=== PATIENT | female | born 1935 | race Caucasian/White ===

== ENCOUNTER 2016-06-20 17:04 | Inpatient (IN) | payer OTHER ==
[~2016-06-20] VITALS: Ht 160 cm; Wt 58.0 kg
[~2016-06-20 17:04] MED LIST: ADVAIR 250/501 DISK IH; ASCORBIC ACID500 M3 PO; BENADRYL50 MG PO; COREG6.25 MG PO; Coreg PO; FLOXIN OTIC SOLN5 ML LEFT EAR; GLIPIZIDE ER; GLUCOPHAGE1000 MG PO; GLUCOSAMINE &1 EAC1 PO; GLUCOTROL XL10 MG PO; Glucotrol XL PO; Habitrol,Nicoderm CQ TD; LISINIPRIL; LISINOPRIL PO; LISINOPRIL40 MG PO; Lasix PO; Levaquin PO; METFORMIN HCL1000 MG PO; PERCOCET 5/31 TABLET PO; PRAVACHOL40 MG PO; PREDNISONE50 MG PO; PREVACID30 MG PO; PRINIVIL10 MG PO; SPIRIVA1 INHALATI IH; SYMBICORT60 INHALAT IH; VITAMIN B12-FO1 EACH PO; ZESTRIL,PRINIVI10 MG PO; Zestril,Prinivil PO; Zithromax PO; predniSONE PO
[2016-06-20 17:39] LABS: HEMATOCRIT 31.4 % (36.0-46.0); MCH 29.6 PG (29.0-34.0); MCHC 33.4 G/DL (30.0-36.0); MCV 88.5 FL (83-99); MEAN PLAT.VOLUME 11.1 uM^3 (9.5-12.4); PLATELET COUNT 195 K/uL (156-360); RBC DIS.WIDTH-CV 14.4 % (11.8-14.6); RBC DIS.WIDTH-SD 45.7 % (39-53); RED BLOOD COUNT 3.55 M/uL (3.80-5.20); WHITE BLOOD COUNT 9.4 K/uL (4.1-10.2)
[2016-06-20 17:54] LABS: CHLORIDE 92 mEq/L (99-109); SODIUM 133 mEq/L (136-147)
[2016-06-20 17:56] LABS: GLUCOSE 207 mg/dL (70-99)
[2016-06-20 17:58] LABS: ANION GAP 15 MEQ/L (2-14); TOTAL BILIRUBIN 0.5 mg/dL (0.0-1.0)
[2016-06-20 18:00] LABS: ALKALINE PHOSPHATASE 87 IU/L (3-129); GFR ESTIMATE (CALCULATED) > 59 mL/min/; POTASSIUM 3.5 mEq/L (3.7-5.4)
[2016-06-20 18:02] LABS: UREA NITROGEN (BUN) 31 mg/dL (9-23)
[2016-06-20] MEDS ORDERED: LISINOPRIL40 MG PO (22:47)
[2016-06-20] MEDS ORDERED: VITAMIN B12 100MCG PO (22:47)
[2016-06-20] MEDS ORDERED: METFORMIN HCL1000 MG PO (22:47)
[2016-06-20] MEDS ORDERED: SPIRIVA1 INHALATI IH (22:47)
[2016-06-20] MEDS ORDERED: SYMBICORT60 INHALAT IH (22:47)
[2016-06-20] MEDS ORDERED: AMLODIPINE BESY10 MG PO (22:48)
[2016-06-20] MEDS ORDERED: LO-DOSE ASPIRIN81 M2 PO (22:48)
[2016-06-20] MEDS ORDERED: VITAMIN D2000 UNI1 PO (22:48)
[2016-06-20] MEDS ORDERED: PRAVASTATIN SOD40 MG PO (22:48)
[2016-06-21] VITALS (28 sets, daily range): BP systolic 85–172; BP diastolic 28–77
[2016-06-21 02:03] LABS: TROP-I INTERPRETATION NEGATIVE; TROPONIN-I 0.01 ng/mL (0.0-0.30)
[2016-06-21 02:25] LABS: METH RESISTANT S AUREUS PCR NEGATIVE (NEGATIVE)
[2016-06-21 02:28] LABS: PROBE CHECK PASS; SPECIMEN PROCESSING CONTROL PASS
[2016-06-21 06:06] LABS: HEMATOCRIT 27.2 % (36.0-46.0); MCH 29.5 PG (29.0-34.0); MCHC 32.7 G/DL (30.0-36.0); MCV 90.1 FL (83-99); MEAN PLAT.VOLUME 11.7 uM^3 (9.5-12.4); PLATELET COUNT 158 K/uL (156-360); RBC DIS.WIDTH-CV 14.5 % (11.8-14.6); RBC DIS.WIDTH-SD 47.7 % (39-53); RED BLOOD COUNT 3.02 M/uL (3.80-5.20); WHITE BLOOD COUNT 5.8 K/uL (4.1-10.2)
[2016-06-21 06:11] LABS: ALKALINE PHOSPHATASE 63 IU/L (3-129); ANION GAP 9 MEQ/L (2-14); CHLORIDE 99 MEQ/L (99-109); GFR ESTIMATE (CALCULATED) > 59 mL/min/; GLUCOSE 130 mg/dL (70-99); POTASSIUM 3.4 MEQ/L (3.7-5.4); SAMPLE HEMOLYSIS CHECK 0; SAMPLE ICTERIC CHECK 0; SAMPLE LIPEMIA CHECK 0; SODIUM 136 MEQ/L (136-147); TOTAL BILIRUBIN 0.5 MG/DL (0.0-1.0); UREA NITROGEN (BUN) 22 mg/dL (9-23)
[2016-06-21 10:26] LABS: POINT-OF-CARE METER ID UU14162636
[2016-06-21 16:30] LABS: HEMATOCRIT 32.2 % (36.0-46.0); MCH 28.7 PG (29.0-34.0); MCHC 32.3 G/DL (30.0-36.0); MEAN PLAT.VOLUME 11.9 uM^3 (9.5-12.4); PLATELET COUNT 143 K/uL (156-360); RBC DIS.WIDTH-CV 16.2 % (11.8-14.6); RBC DIS.WIDTH-SD 52.9 % (39-53); RED BLOOD COUNT 3.62 M/uL (3.80-5.20); WHITE BLOOD COUNT 6.5 K/uL (4.1-10.2)
[2016-06-21 16:44] LABS: ANION GAP 12 MEQ/L (2-14); CHLORIDE 102 MEQ/L (99-109); SAMPLE HEMOLYSIS CHECK 0; SAMPLE ICTERIC CHECK 0; SAMPLE LIPEMIA CHECK 0; SODIUM 138 MEQ/L (136-147)
[2016-06-21 16:50] LABS: GFR ESTIMATE (CALCULATED) > 59 mL/min/; UREA NITROGEN (BUN) 23 mg/dL (9-23)
[2016-06-21 16:59] LABS: GLUCOSE 90 mg/dL (70-99); POTASSIUM 4.1 MEQ/L (3.7-5.4)
[2016-06-21 18:12] LABS: BASE EXCESS 2.8 mEq/L (-3 to +3); BICARBONATE 27.2 mEq/L (22-26); DEVICE NC; METHEMOGLOBIN 1.6 % (0-1.5); O2 FLOW 1 L/MIN; PCO2 40 mm Hg (35-45); PO2 68 mm Hg (80-100); SITE L ALINE; pH 7.44 (7.35-7.45)
[2016-06-22] VITALS (12 sets, daily range): BP systolic 115–185; BP diastolic 47–77
[2016-06-22 02:20] LABS: POINT-OF-CARE METER ID UU13113803
[2016-06-22 05:51] LABS: HEMATOCRIT 30.7 % (36.0-46.0); MCH 28.9 PG (29.0-34.0); MCHC 32.2 G/DL (30.0-36.0); MCV 89.5 FL (83-99); MEAN PLAT.VOLUME 11.3 uM^3 (9.5-12.4); PLATELET COUNT 146 K/uL (156-360); RBC DIS.WIDTH-CV 16.5 % (11.8-14.6); RBC DIS.WIDTH-SD 54.5 % (39-53); RED BLOOD COUNT 3.43 M/uL (3.80-5.20); WHITE BLOOD COUNT 4.8 K/uL (4.1-10.2)
[2016-06-22 06:17] LABS: ALKALINE PHOSPHATASE 62 IU/L (3-129); ANION GAP 10 MEQ/L (2-14); CHLORIDE 104 MEQ/L (99-109); GFR ESTIMATE (CALCULATED) > 59 mL/min/; GLUCOSE 86 mg/dL (70-99); POTASSIUM 3.6 MEQ/L (3.7-5.4); SAMPLE HEMOLYSIS CHECK 0; SAMPLE ICTERIC CHECK 0; SAMPLE LIPEMIA CHECK 0; SODIUM 139 MEQ/L (136-147); TOTAL BILIRUBIN 0.5 MG/DL (0.0-1.0); UREA NITROGEN (BUN) 22 mg/dL (9-23)
[2016-06-22 11:00] LABS: POINT-OF-CARE METER ID UU13113803
[2016-06-23 04:09] VITALS: BP 165/74
[2016-06-23 07:30] VITALS: BP 178/76
[2016-06-23 07:35] LABS: MCH 27.9 PG (29.0-34.0); MCHC 31.8 G/DL (30.0-36.0); MCV 87.8 FL (83-99); MEAN PLAT.VOLUME 10.7 uM^3 (9.5-12.4); RBC DIS.WIDTH-CV 15.5 % (11.8-14.6); RED BLOOD COUNT 3.76 M/uL (3.80-5.20)
[2016-06-23 07:38] LABS: PLATELET COUNT 193 K/uL (156-360); WHITE BLOOD COUNT 7.3 K/uL (4.1-10.2)
[2016-06-23 07:41] LABS: ALKALINE PHOSPHATASE 66 IU/L (3-129); ANION GAP 12 MEQ/L (2-14); CHLORIDE 103 MEQ/L (99-109); GFR ESTIMATE (CALCULATED) > 59 mL/min/; GLUCOSE 93 mg/dL (70-99); POTASSIUM 3.5 MEQ/L (3.7-5.4); SAMPLE HEMOLYSIS CHECK 0; SAMPLE ICTERIC CHECK 0; SAMPLE LIPEMIA CHECK 0; SODIUM 139 MEQ/L (136-147); TOTAL BILIRUBIN 0.5 MG/DL (0.0-1.0); UREA NITROGEN (BUN) 18 mg/dL (9-23)
[2016-06-23 11:25] VITALS: BP 170/77
[2016-06-23 13:03] LABS: BASE EXCESS 0.2 mEq/L (-3 to +3); BICARBONATE 24.6 mEq/L (22-26); CARBOXY HGB 1.9 % (0-5); METHEMOGLOBIN 1.4 % (0-1.5); PCO2 38 mm Hg (35-45); PO2 69 mm Hg (80-100); pH 7.42 (7.35-7.45)
[2016-06-23 13:04] LABS: COMMENTS - BLOOD GASES A+C+; O2 FLOW 6 L/MIN; SITE RR
[2016-06-23 13:05] LABS: DEVICE CANNULA
[2016-06-23 15:10] VITALS: BP 165/71
[2016-06-23 23:45] VITALS: BP 152/68
[2016-06-24 07:38] LABS: MCH 29.3 PG (29.0-34.0); MCHC 33.7 G/DL (30.0-36.0); MCV 86.8 FL (83-99); MEAN PLAT.VOLUME 11.1 uM^3 (9.5-12.4); PLATELET COUNT 207 K/uL (156-360); RBC DIS.WIDTH-CV 14.7 % (11.8-14.6); RBC DIS.WIDTH-SD 46.7 % (39-53); RED BLOOD COUNT 4.03 M/uL (3.80-5.20); WHITE BLOOD COUNT 8.3 K/uL (4.1-10.2)
[2016-06-24 08:00] VITALS: BP 167/69
[2016-06-24 08:14] LABS: ALKALINE PHOSPHATASE 66 IU/L (3-129); ANION GAP 11 MEQ/L (2-14); CHLORIDE 97 MEQ/L (99-109); GFR ESTIMATE (CALCULATED) > 59 mL/min/; GLUCOSE 76 mg/dL (70-99); SAMPLE HEMOLYSIS CHECK 0; SAMPLE ICTERIC CHECK 0; SAMPLE LIPEMIA CHECK 0; SODIUM 137 MEQ/L (136-147); TOTAL BILIRUBIN 0.6 MG/DL (0.0-1.0); UREA NITROGEN (BUN) 10 mg/dL (9-23)
[2016-06-24 12:02] VITALS: BP 173/79
[2016-06-24 17:17] VITALS: BP 191/84
[2016-06-24 19:57] VITALS: BP 144/60
[2016-06-24 23:36] VITALS: BP 144/60
[2016-06-25 08:00] VITALS: BP 171/77
[2016-06-25 08:09] LABS: HEMATOCRIT 35.4 % (36.0-46.0); MCH 28.3 PG (29.0-34.0); MCHC 32.5 G/DL (30.0-36.0); MEAN PLAT.VOLUME 10.6 uM^3 (9.5-12.4); PLATELET COUNT 193 K/uL (156-360); RBC DIS.WIDTH-CV 14.6 % (11.8-14.6); RBC DIS.WIDTH-SD 46.6 % (39-53); RED BLOOD COUNT 4.07 M/uL (3.80-5.20)
[2016-06-25 08:13] LABS: WHITE BLOOD COUNT 5.2 K/uL (4.1-10.2)
[2016-06-25 08:14] LABS: ALKALINE PHOSPHATASE 62 IU/L (3-129); ANION GAP 16 MEQ/L (2-14); CHLORIDE 95 MEQ/L (99-109); GFR ESTIMATE (CALCULATED) > 59 mL/min/; GLUCOSE 49 mg/dL (70-99); POTASSIUM 3.5 MEQ/L (3.7-5.4); SAMPLE HEMOLYSIS CHECK 0; SAMPLE ICTERIC CHECK 0; SAMPLE LIPEMIA CHECK 0; SODIUM 138 MEQ/L (136-147); TOTAL BILIRUBIN 0.5 MG/DL (0.0-1.0); UREA NITROGEN (BUN) 9 mg/dL (9-23)
[2016-06-25 12:18] VITALS: BP 119/60
[2016-06-25 16:00] VITALS: BP 149/76
[2016-06-25 23:54] VITALS: BP 174/69
[2016-06-26 08:00] VITALS: BP 166/70
[2016-06-26 20:15] VITALS: BP 150/68
[2016-06-26 23:53] VITALS: BP 151/69
[2016-06-27 04:21] VITALS: BP 167/70
[2016-06-27 06:11] LABS: HEMATOCRIT 34.4 % (36.0-46.0); MCH 28.5 PG (29.0-34.0); MCHC 33.1 G/DL (30.0-36.0); MEAN PLAT.VOLUME 10.7 uM^3 (9.5-12.4); PLATELET COUNT 200 K/uL (156-360); RBC DIS.WIDTH-CV 14.3 % (11.8-14.6); RBC DIS.WIDTH-SD 45.3 % (39-53); WHITE BLOOD COUNT 4.3 K/uL (4.1-10.2)
[2016-06-27 06:37] LABS: ANION GAP 8 MEQ/L (2-14); CHLORIDE 99 MEQ/L (99-109); GFR ESTIMATE (CALCULATED) > 59 mL/min/; POTASSIUM 2.8 MEQ/L (3.7-5.4); SAMPLE HEMOLYSIS CHECK 0; SAMPLE ICTERIC CHECK 0; SAMPLE LIPEMIA CHECK 0; SODIUM 138 MEQ/L (136-147); UREA NITROGEN (BUN) 7 mg/dL (9-23)
[2016-06-27 06:41] LABS: GLUCOSE 108 mg/dL (70-99)
[2016-06-27 08:00] VITALS: BP 154/65
[2016-06-27 15:56] VITALS: BP 153/64
[2016-06-27 23:33] VITALS: BP 154/69
[2016-06-28 07:40] VITALS: BP 138/63
[2016-06-28 07:43] LABS: ANION GAP 12 MEQ/L (2-14); CHLORIDE 98 MEQ/L (99-109); GFR ESTIMATE (CALCULATED) > 59 mL/min/; GLUCOSE 99 mg/dL (70-99); POTASSIUM 3.5 MEQ/L (3.7-5.4); SAMPLE HEMOLYSIS CHECK 0; SAMPLE ICTERIC CHECK 0; SAMPLE LIPEMIA CHECK 0; SODIUM 141 MEQ/L (136-147); UREA NITROGEN (BUN) 7 mg/dL (9-23)
[2016-06-28 11:05] LABS: Estimated Average Glucose 103 mg/dL (70-123); HEMOGLOBIN A1c (GLYCOHEMOGLOB) 5.2 % HGB (Below 5.7)
[2016-06-28] MEDS ORDERED: METFORMIN HCL500 MG PO (14:17)
[2016-06-28] MEDS ORDERED: FAMOTIDINE20 MG PO (14:28)
[2016-06-28 15:22] VITALS: BP 151/69
== END 2016-06-28 17:38 | disposition home health service (06) | DRG 853 ==
LOC: EME 17:04 → 2EAST 21:23 → 4WEST 21:23 → EDOF 21:23 → 4WEST 06-21 00:59 → 2EAST 06-22 16:24
PROVIDERS: Hospitalist; Internal Medicine; Internal Medicine Critical Care Medicine; Surgery
DX: A41.9 Sepsis, unspecified organism (principal); K55.029 Acute infarction of small intestine, extent unspecified; R64 Cachexia; R18.8 Other ascites; K56.7 Ileus, unspecified; G93.41 Metabolic encephalopathy; I10 Essential (primary) hypertension; E11.65 Type 2 diabetes mellitus with hyperglycemia; I73.9 Peripheral vascular disease, unspecified; J44.9 Chronic obstructive pulmonary disease, unspecified; F17.200 Nicotine dependence, unspecified, uncomplicated; E78.5 Hyperlipidemia, unspecified; Z89.429 Acquired absence of other toe(s), unspecified side; D64.9 Anemia, unspecified; Z99.81 Dependence on supplemental oxygen; L27.0 Generalized skin eruption due to drugs and medicaments taken internally; T37.3X5A Adverse effect of other antiprotozoal drugs, initial encounter; I25.10 Atherosclerotic heart disease of native coronary artery without angina pectoris; E11.69 Type 2 diabetes mellitus with other specified complication; E87.6 Hypokalemia; F03.90 Unspecified dementia, unspecified severity, without behavioral disturbance, psychotic disturbance, mood disturbance, and anxiety
CPT/HCPCS: 36600; 71010; 74177; 80048; 80048 91; 80053; 81003; 82803; 82948; 83036; 83605; 83735; 84484; 85027; 86850; 86900; 86901; 86920; 87040; 87070; 87077; 87106; 87181; 87205; 87641; 88307; 94002; 94003; 94010; 94640; 94640 76; 94667; 94668; 94760; 94799; 97530 GO; 97530 GP; 99202; 99281; 99285; J0330; J0692; J1100; J1170; J1200; J1650; J1815; J2405; J2543; J2704; J2710; J2920; J3010; J3475; J3480; J7030; J7040; J7050; P9016; P9045; P9047; S0028; S0030